=== PATIENT | male | born 1940 | race Caucasian/White ===

== ENCOUNTER → 2017-10-23 | Day surgery (SDC) | payer MEDICARE, BC ==
[~2017-10-23] MED LIST: CHROMIUM IV ONE; COPPER IV ONE; Cyanocobalamin (Vitamin B12) 1,000 MCG/ML SDV IM ONE; Glycopyrrolate 0.2 MG/ML 2 ML SDV IVPUSH ONE; Lactated Ringers 1,000 ML IV SCH; MANG IV ONE; MVI IV ONE; Propofol 200 MG/20 ML SDV ONE; SELEN IV ONE; THIAMINE IV ONE; [UNRECOGNIZED DRUG - OTHER] IV ONE; fentaNYL 100 MCG/2 ML SDV ONE
--- NOTE | 2017-10-24 17:40 | OR ---
DATE OF PROCEDURE: 10/23/2017 PREOPERATIVE DIAGNOSIS: Dysphagia, status post Nohemi-en-Y gastric bypass. 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 OPERATIVE PROCEDURE: Upper GI endoscopy with biopsies of gastric pouch for CLOtest. ANESTHESIA: IV sedation. INDICATION FOR PROCEDURE: This is a 77-year-old presenting with several months of dysphagia, status post Nohemi-en-Y gastric bypass in 2008. He was started on Protonix late last week and feels things have perhaps improved slightly on that medication. Plan is to proceed with an upper GI endoscopy with biopsies and/or dilation as indicated. Potential risks including bleeding and perforation were discussed, and the patient wishes to proceed. DETAILS OF PROCEDURE: The patient was taken to the operating room and placed in a left lateral decubitus position. IV sedation was administered, after which the upper GI endoscope was passed orally through the length of the esophagus and into the gastric pouch and from there through the gastrojejunostomy roughly 20 cm into the Nohemi limb. Findings included normal hypopharynx, larynx, upper esophageal sphincter, and esophageal body at the EG junction and no abnormalities were noted. The pouch was diffusely somewhat reddened and edematous with some additional patchy reddened areas that were more intense. No erosions or ulcers were seen. There was no marginal ulcer and no stricturing at the gastrojejunostomy. The pouch size was normal and the gastrojejunostomy was also widely patent with the retained portion of the visualized Nohemi limb was unremarkable. At this point, biopsies were obtained from the gastric pouch and sent for CLOtest for H. pylori. Minimal bleeding from the biopsy sites was seen and the procedure then concluded. The patient will be continued on the Protonix suspecting he has inflammation from pouch gastritis versus edema in that area and that Protonix will hopefully relieve those symptoms. The patient will be following up with [facility] in 1 month. Francisco Faria MD /[id number]
== END ==
LOC: JP.SDS 05:53
PROVIDERS: ATTEND Surgery
DX: K29.70 Gastritis, unspecified, without bleeding (principal); J44.9 Chronic obstructive pulmonary disease, unspecified; I10 Essential (primary) hypertension; F32.9 Major depressive disorder, single episode, unspecified; Z98.84 Bariatric surgery status
CPT/HCPCS: 43239; 87081; J2704; J3010; J3411; J3420; J7120; J3490